=== PATIENT | male | born 1960 | race Caucasian/White ===

== ENCOUNTER 2022-01-30 20:12 | Emergency (ER) | payer OTHER, BC ==
[2022-01-30 20:20] VITALS: BP 149/93; PULSE 79; RESP 16; TEMP 98.7; BMI 27.7
== END 2022-01-30 20:40 | disposition home or self-care (01) ==
LOC: FER 20:12
DX: J06.9 Acute upper respiratory infection, unspecified (principal)
CPT/HCPCS: 0241U-QW; 99283-25

== ENCOUNTER 2024-03-04 05:42 | Inpatient (IN) | payer OTHER, BC ==
[2024-03-04 06:01] VITALS: BMI 31.6
[2024-03-04] MEDS ORDERED: ONDANSETRON 4 MG/2 ML VIAL ONE (06:19)
[2024-03-04] MEDS ORDERED: morphine SULFATE 4 MG/ML VIAL ONE (06:19)
[2024-03-04] MEDS: morphine CARPU-JECT 4 MG/1 ML DISP.SYRIN IVPUSH ONE (06:28)
[2024-03-04] MEDS: ONDANSETRON 4 MG/2 ML VIAL IVPUSH ONE (06:28)
[2024-03-04 07:16] LABS: ACTIVATED PTT 32.2 SECONDS (25.2-36.5)
[2024-03-04] MEDS ORDERED: morphine CARPU-JECT 2 MG/1 ML DISP.SYRIN IVPUSH PRN (07:46)
[2024-03-04] MEDS ORDERED: ONDANSETRON 4 MG/2 ML VIAL IVPUSH PRN ×2 (07:46→10:46)
[2024-03-04] MEDS ORDERED: ACETAMINOPHEN 1000 MG/100 ML BAG IVPB PRN ×2 (07:48→10:46)
[2024-03-04 07:49] LABS: BASO % 0.9 % (0-2.0); EOS % 1.2 % (0-4.5); HEMATOCRIT 43.2 % (35.4-49); HEMOGLOBIN 15.1 GM/dL (11.7-16.9); LYMPH % 11.1 % (8-40); MCH 29.7 pg (25.7-33.7); MCHC 34.9 g/dl (32.0-35.9); MEAN CELL VOLUME 85.2 fl (80-96); MEAN PLT VOLUME 9.1 fl (7.5-11.1); MONO % 8.9 % (3.8-10.2); NEUT % 77.9 % (42.8-82.8); PLATELET COUNT 221 10^3/uL (134-434); RBC 5.07 M/mm3 (4.00-5.60); RDW 14.1 % (11.9-15.9); WHITE BLOOD COUNT 10.5 K/mm3 (4.0-10.0)
[2024-03-04] MEDS ORDERED: CEFTRIAXONE 1 G/50 ML PREMIX 50 ML IVPB ONE (07:58)
[2024-03-04] MEDS: CEFTRIAXONE 1 GM in DEXTROSE 5%-WATER - 100 ML IVPB ONE (08:04)
[2024-03-04 08:11] LABS: POTASSIUM 3.6 mmol/L (3.5-5.1)
[2024-03-04 08:13] LABS: CALCIUM 8.9 mg/dL (8.5-10.1)
[2024-03-04 08:14] LABS: ALBUMIN 3.7 g/dl (3.4-5.0); BLOOD UREA NITROGEN 16.7 mg/dL (7-18)
[2024-03-04 08:17] LABS: CREATININE 1.1 mg/dL (0.55-1.3)
[2024-03-04 08:18] LABS: BILIRUBIN,TOTAL 1.1 mg/dL (0.2-1)
[2024-03-04 08:19] LABS: TOT PROT 6.8 g/dl (6.4-8.2)
[2024-03-04 08:26] LABS: INR 1.02 (0.83-1.09); PROTHROMBIN TIME (PATIENT) 11.5 SEC (9.7-13.0)
[2024-03-04] MEDS: LACTATED RINGERS SOLUTION 1,000 ML/1,000 ML INFUS.BAG IV SCH (09:04)
[2024-03-04] MEDS ORDERED: MIDAZOLAM HCL 2 MG/2 ML SINGLE DOSE VIAL ONE (10:36)
[2024-03-04] MEDS ORDERED: ACETAMINOPHEN INJECTION 100 ML ONE (11:06)
[2024-03-04] MEDS: ACETAMINOPHEN 1000 MG/100 ML BAG IVPB ONE (11:10)
[2024-03-04] MEDS: LACTATED RINGERS SOLUTION 1,000 ML IV SCH (13:01)
[2024-03-04 13:55] VITALS: PULSE 76; RESP 18; TEMP 98.2
[2024-03-04 14:07] VITALS: BP 131/78
[2024-03-04] MEDS ORDERED: LOSARTAN POTASSIUM 25 MG TABLET PO SCH ×2 (21:00)
[2024-03-04] MEDS ORDERED: metoPROLOL SUCCINATE 25 MG TAB.SR.24H (FP) PO SCH ×2 (21:00)
== END 2024-03-04 16:44 | disposition home or self-care (01) | DRG 661 ==
LOC: JER 05:42 → JERBED 07:22 → J5S 09:10
PROVIDERS: ADMIT Internal Medicine; ATTEND Internal Medicine
PROC: 0T778DZ Dilation of Left Ureter with Intraluminal Device, Via Natural or Artificial Opening Endoscopic (ICD-10-PCS; principal; 2024-03-04 13:00)
DX: N13.2 Hydronephrosis with renal and ureteral calculous obstruction (principal); I10 Essential (primary) hypertension
CPT/HCPCS: 36415; 74174-TC; 76000-TC-FY; 80053; 81003; 81015; 83605; 83690; 83735; 84484; 85025; 85027; 85610; 85730; 86803; 86850; 86900; 86901; 87086; 87389; 93005; 93010; 94760; 99285-25; C2617; J0131; Q9967